=== PATIENT | female | born 1985 | race African-American/Black ===

== ENCOUNTER 2025-05-30 08:57 | Outpatient (CLI) | payer MEDICAID, SELFPAY | END 2025-05-30 08:58 | disposition home or self-care (01) | PROVIDERS: PCP Physician Assistant; Visit Provider Family Medicine | DX: R10.9 Unspecified abdominal pain (principal); R19.7 Diarrhea, unspecified | CPT/HCPCS: A0425; A0427 ==

== ENCOUNTER 2025-05-30 09:37 | Emergency (ER) | payer MEDICAID, SELFPAY ==
--- OUTSIDE RECORDS SUMMARY | 2010-01-14 07:15 | XMS_ITS | Continuity of Care Document ---
Author Organization [facility] Address [address] [address] [place] [address] Phone Care Team Providers Care Roving Inspector Name Role Phone Unavailable Unavailable Unavailable Allergies, Adverse Reactions, Alerts Substance Reaction Status Criticality No Known allergies Medications Medication Instructions Dosage Effective Dates (start - stop) Status Comments Prevpac 500 mg-500 mg-30 mg Oral Pack Take as directed fro 14 days - Active lorazepam 0.5 mg Tab One tablet twice daily - Active Percocet 5 mg-325 mg Tab as needed - Active Abilify 5 mg Tab One tablet twice daily - Active Zoloft 50 mg Tab Take one tablet by mouth daily - Active Procedures Procedure Date Ugi Endo; W/bx 1/mx Level Iv-surg Path Gross/micro 10 Advance Directives Directive Yes / No Effective Date File Name No Information Encounters Encounter Description Practice Location Reason(s) For Visit Diagnoses Date Provider Providers Copied on Encounter [facility], [address] [address], [place], [place], [id number], [place] tel:[phone] [facility] No Information [address] [facility] [place], [address] [address], [place], [place], [id number], [place] tel:[phone] [facility] Hiatal HerniaGastritis W/o BleedDuodenitis Gastritis W/o BleedHiatal HerniaH. Pylori Infection 0 No Information Referring Provider: Trini Calvillo MD W, Vinicio E Anjana Orellana, [place], [address]. tel:[phone] Family History Family Member Type Diagnosis Age At Onset No Information Payers Payer name Insurance type Covered republican ID Authoriza tiana(s) No Information Social History Type Description Quantity Date Captured Comments Sex Female Smoking Status No Information Chief Complaint And Reason For Visit No Information Reason For Referral Reason For Referral No Information History Of Present Illness Encounter Date Complaint History Of Prese nt Illness No Information Functional Status Date Functional Assessmen t No Information Instructions Date Instruction Additional Infor mation No Information Assessments Type Assessment Date No Information Patient Care Teams Name Effective Dates (start - stop) Status Members No Information
[2025-05-30] VITALS (10 sets, daily range): BP systolic 97–118; BP diastolic 46–85; PULSE 49–62; RESP 16–18; TEMP 36.4; O2SAT 96–98; BMI 26.6
--- NOTE | 2025-05-30 10:14 | ED_ITS ---
HPI - Abdominal Pain General Time Seen by Provider: 10:14 Date Seen: 05/30/25 Chief Complaint: Abdominal Pain Stated Complaint: Stomach Pain Time Seen by Provider: 05/30/25 10:13 Source: patient, EMS and RN notes reviewed Mode of arrival: EMS Limitations: no limitations History of Present Illness HPI narrative: This 39-year-old female is coming into the ER via ambulance with complaint of abdominal pain and syncopal episode at home. She did go out last night, had a few drinks but nothing that she would thought would make her sick. She states she just really did not sleep well. She finally fell asleep and then awoke maybe an hour later and was having lower abdominal pain. She got up to go to the bathroom, called to her mom as she was not feeling good. She reportedly had a syncopal episode in the bathroom. She did have an episode of diarrhea. She does not actually remember passing out. When EMS got to her she was responsive but complaining of abdominal pain. She reports she did get Zofran and fentanyl in route but still is having lower abdominal discomfort, does not feel the fentanyl helped. She is complaining of left lower abdominal pain that does generalize into the abdomen. She is still having some nausea. She does clean at [facility]. She does not have any known ill contacts or any recent travel. She has had 5 pregnancies in vaginal deliveries, no other abdominal surgery. She states she does have asthma. She has had a tubal ligation about 7 years ago and states she has had problems with her stomach ever sense. She states she recently was into the clinic to see her doctor about abdominal symptoms. She states she sees Dr. Santos at [facility]. She does have underlying asthma. She does think she carries a diagnosis ulcers but does not think she has had a scope recently. Related Data Home Medications ?Medication ?Instructions ?Recorded ?Confirmed albuterol 90 mcg/actuation aerosol mcg inhalation 05/12 08/06 inhaler Previous Rx's ?Medication ?Instructions ?Recorded ketorolac 10 mg tablet 10 mg PO QID PRN pain #20 ta bs 05/30/25 ondansetron 4 mg disintegrating 4 mg PO Q6H PRN nausea and 05/30/25 tablet vomiting #20 tabs Allergies Allergy/AdvReac Type Severity Reaction Status Date / Time acetaminophen (From Percocet) Allergy Intermediate Rash Verified 05/30/25 11:23 cephalexin Allergy Intermediate Rash Verified 05/30/25 11:23 ibuprofen Allergy Intermediate Gastrointestinal Verified 05/30/25 11:23 Upset oxycodone (From Percocet) Allergy Intermediate Rash Verified 05/30/25 11:23 Review of Systems Status of ROS Reports: 6 or more systems reviewed and unremarkable except as noted in History and below Exam Const: Vital Signs, click to edit/add: Vital Signs - 24 hr 05/30/25 09:45 05/30/25 09:51 05/30/25 10:00 Temperature 97.6 F Pulse Rate 51 L 62 Pulse Rate [Pulse Oximeter] 55 L Respiratory Rate 16 17 Blood Pressure Blood Pressure [Ri ght Upper Arm] 118/85 Pulse Oximetry 96 96 97 Oxygen Delivery Me thod Room Air 05/30/25 10:02 05/30/25 10:03 05/30/25 10:15 Temperature Pulse Rate 53 L 52 L 50 L Pulse Rate [Pulse Oximeter] Respiratory Rate 16 Blood Pressure 101/60 Blood Pressure [Ri ght Upper Arm] Pulse Oximetry 97 97 97 Oxygen Delivery Me thod 05/30/25 10:22 05/30/25 10:30 05/30/25 10:43 Temperature Pulse Rate 50 L 49 L Pulse Rate [Pulse Oximeter] Respiratory Rate 18 Blood Pressure 114/61 98/46 L Blood Pressure [Ri ght Upper Arm] Pulse Oximetry 98 98 Oxygen Delivery Me thod This 39-year-old patient is alert, interactive, no apparent distress. Sclera clear, face atraumatic, speech normal. Lungs clear, good air entry, no wheezing or crackles, no tachypnea, no accessory muscle use. CV is slow but regular, no murmur, normal S1-S2, no S3-S4. Abdomen is soft, nondistended, bowel sounds are present and sound normal. She is complaining of right upper quadrant tenderness as well as generalized tenderness throughout the lower abdomen. There is no rebound or guarding, no organomegaly, no masses noted. Documenting provider has reviewed patient's vital signs: yes Course Course ED Course: Patient is having both upper and lower abdominal pain on examination. This cert ainly could be a gastroenteritis, atypical presentation of biliary disease. We will proceed with CT imaging, will attempt to look at records. Will give her some IV Toradol for further pain management, initiate some IV fluids and get appropriate blood work. Reevaluation(s) Time of Reevaluation #1: 12:33 Reevaluation #1: Have reviewed CT findings with patient, she has ascending and transverse colitis. Lactate was normal and thus not likely ischemic. We discussed the differential that this certainly can be viral or bacterial. Discussed observation in the hospital versus trial of outpatient management. She would prefer to go home. She does understand that this could worsen, may need hospita lization. At this time, I think she is clinically stable enough to try outpatient management. Vital Signs Vital signs: Initial Vital Signs Temperature 97.6 F 05/30/25 09:45 Temperature Source Temporal Artery Scan 05/30/25 09:45 Pulse Rate 55 L 05/30/25 09:45 Respiratory Rate 16 05/30/25 09:45 Blood Pressure 118/85 05/30/25 09:45 Blood Pressure Mean 96 05/30/25 09:45 Pulse Oximetry 96 05/30/25 09:45 Oxygen Delivery Method Room Air 05/30/25 09:45 Vital Signs Temperature 97.6 F 05/30/25 09:45 Pulse Rate 55 L 05/30/25 09:45 Respiratory Rate 16 05/30/25 09:45 Blood Pressure 118/85 05/30/25 09:45 Pulse Oximetry 96 05/30/25 09:45 Oxygen Delivery Method Room Air 05/30/25 09:45 Temperature 97.6 F 05/30/25 09:45 Pulse Rate 49 L 05/30/25 10:30 Respiratory Rate 18 05/30/25 10:30 Blood Pressure 98/46 L 05/30/25 10:43 Pulse Oximetry 98 05/30/25 10:30 Oxygen Delivery Method Room Air 05/30/25 09:45 Medications Administered Medications: Discontinued Medications Generic Name Dose Route Start Last Admin Trade Name Freq PRN Reason Stop Dose Admin Sodium Chloride 1,000 mls @ 500 mls/hr 05/30/25 10:27 05/30/25 11:26 0.9 % Sodium Chloride 1000 Ml IV 05/30/25 12:26 500 mls/hr .Q2H MARTINEZ Administration Ketorolac Tromethamine 15 mg 05/30/25 10:26 05/30/25 10:33 Ketorolac 15 Mg/Ml Inj IVP 05/30/25 10:27 15 mg ONCE ONE Administration MDM - Abdominal Pain Medical Records Attestation: I reviewed the patient's medical records. Medical records narrative: Patient did follow-up with Dr. Santos on May 27. There is reported history of early satiety, weight loss, iron deficiency for which omeprazole was started. They have done a right upper quadrant ultrasound which was negative for ch olecystitis. Thought was that this could represent peptic ulcer disease/gastritis. They are supplementing with oral iron Sunday. 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 She has a history of asthma and tobacco use with nighttime cough. She has had problems and side effects from inhaled corticosteroids. She is noted to have emphysematous changes in this note, there starting Spiriva and p.r.n. albuterol. Labs from May 12 showed normal comprehensive metabolic panel. Her white blood count was normal at 8100, hemoglobin at 13.6 which was normal, platelet count [id number]. She did have a ferritin that was low at 6. TSH was normal, hemoglobin A1c was normal. Ultrasound of a neck nodule showed decreased size of indeterminate hypoechoic structure within the right carotid bifurcation soft tissues done on May 25. Ultrasound of her right upper quadrant done on May 25 shows normal right upper quadrant ultrasound. Lab Data Attestation: I reviewed the patient's lab results. Labs: Lab Results 05/30/25 Range/Units 10:35 WBC 11.31 H (4.50-11.00) K/uL RBC 4.33 (4.00-5.20) m/uL Hgb 13.0 (12.0-16.0) gm/dL Hct 40.6 (33.0-51.0) % MCV 94 (80-100) fL MCH 30 (26-34) pg MCHC 32 (32-36) gm/dL RDW Coeff of Juhi 12.2 (11.5-15.5) % Plt Count 327 (140-440) K/uL Neut % (Auto) 75.7 H (42.0-72.0) % Lymph % (Auto) 16.3 L (20-44) % [place] % (Auto) 5.9 (0.0-11.0) % Eos % (Auto) 1.5 (0.0-7.0) % Baso % (Auto) 0.4 (0.0-3.0) % Neut # (Auto) 8.60 H (1.7-7.0) K/uL Lymph # (Auto) 1.80 (0.90-2.90) K/uL [place] # (Auto) 0.70 (0.00-0.90) K/UL Eos # (Auto) 0.20 (0.00-0.50) K/uL Baso # (Auto) 0.00 (0.00-0.30) K/uL Abs Immat Gran (auto) 0.00 (0.00-0.30) K/uL Imm/Tot Granulo (auto) 0.2 % VBG pH 7.344 (7.32-7.43) VBG pCO2 48 (40-50) mmHG VBG pO2 32.5 (25-47) mmHG VBG HCO3 26 (21-28) mmol/L Sodium 139 (135-149) mmol/L Potassium 3.7 (3.6-5.1) mmol/L Chloride 110 (96-114) mmol/L Carbon Dioxide 25 (20-32) mmol/L Anion Gap 4 L (7-15) mEq/L BUN 9 (5-24) mg/dL Creatinine 0.8 (0.5-1.5) mg/dL Estimated Creat Clear 89.26 Estimated GFR 97 ml/min Glucose 98 (60-115) mg/dL Lactate 0.6 (0.5-1.9) mmol/L Calcium 8.6 (8.4-10.6) mg/dL Total Bilirubin 0.2 (0.1-1.5) mg/dL Direct Bilirubin 0.0 (0.0-0.5) mg/dL AST 19 (12-35) U/L ALT 12 (4-35) U/L Alkaline Phosphatase 51 (40-150) U/L Troponin I < 0.01 (0.01-0.04) ng/mL C-Reactive Protein < 0.5 L (0.5-1.0) mg/dL NT-Pro-B Natriuret Pep 35 (See Note) pg/mL Total Protein 6.2 (6.0-8.3) g/dL Albumin 3.7 (3.3-5.0) g/dL Lipase 80 (23-300) U/L Ethyl Alcohol < 0.01 (0.01-0.03) % Imaging Data CT scan - abdomen: Attestation: I have reviewed the pertinent imaging results. Radiologist's impression: Patient: LORRIE HARRIS Facility:?[facility] Patient ID:?[id number] Site Patient ID:?[id number]. Site :?[id number] Study:?CT-Abdomen/Pelvis 81CC ISOVUE 370-05/30/2025 11:19:10 AM Ordering Physician:?Louise Torres Final Report: INDICATION: Abdominal pain, right upper and right lower quadrant. Diarrhea. TECHNIQUE: CT abdomen and pelvis acquired with 81 cc of Isovue 370 IV contrast. COMPARISON: None. FINDINGS: Lower chest: Unremarkable. Liver: Unremarkable. Spleen: Unremarkable. Pancreas: Unremarkable. Gallbladder and bile ducts: No calcified stones or biliary ductal dilatation. Kidneys: Contrast material in the collecting systems degrades evaluation for urolithiasis. No hydronephrosis or suspicious lesion. Adrenal glands: Unremarkable. GI tract: No evidence of obstruction or acute appendicitis. Mild circumferential thickening and pericolonic heterogeneity involving the ascending and transverse colon. No pneumatosis or free intraperitoneal gas. Trace pelvic free fluid. No suspicious fluid collection. Lymph nodes: No pathologic lymphadenopathy. Vascular structures: Unremarkable. Pelvic Organs: Unremarkable. Bones: No acute or suspicious osseous abnormality. IMPRESSION: Colitis of the ascending and transverse colon. Trace pelvic free fluid may be reactive or physiologic. No evidence of perforation or abscess. Dictated by Apollo Bradshaw MD @ 05/30/2025 12:13:34 PM Please note that all CT scans at this facility use dose modulation, iterative reconstruction, and/or weight-based dosing when appropriate to reduce radiation dose to as low as reasonably achievable. Dictated by: Apollo Bradshaw MD @ 05/30/2025 12:14:32 (Electronic Signature) ECG Data Attestation: I personally reviewed and interpreted this ECG as follows: (Sinus bradycardia, 55 beats per minute. No acute ischemic change or infarct noted. QT corrected 438 milliseconds.) ECG interpretation date: 05/30/25 ECG interpretation time: 11:21 Prior ECG tracings: not available for review Discharge Plan Discharge Clinical Impression: Colitis Patient Disposition: Home, Self-Care Condition: Stable Instructions: Colitis (ED), Nutrition Tips for Relief of Diarrhea (ED) Additional Instructions: Need to drink ample fluids, take frequent small sips of clear liquids. Follow handout to help with nutrition through diarrhea. At this point, would try to really push clear liquids and avoid excessive food. Can use Tylenol 1000 mg 3 times daily baseline for pain. Have written for Zofran for nausea and Toradol for extra pain management. If at any point you are worsening with increasing abdominal pain, development of fever or bloody diarrhea, feel you are unable to keep up with fluids and becoming dehydrated, do need to return for further evaluation. Do recommend scheduling a clinic appointment with your primary care provider within the next week for recheck otherwise. Activity Level: Activity as Tolerated Prescriptions: New ondansetron 4 mg tablet,disintegrating 4 mg PO Q6H PRN (Reason: nausea and vomiting) Qty: 20 0RF ketorolac 10 mg tablet 10 mg PO QID PRN (Reason: pain) Qty: 20 0RF Rx Instructions: maximum total duration of 5 days from all oral, intranasal, or parenteral formulations No Action albuterol 90 mcg/actuation aerosol inhalation Follow Up/Referrals: Corrina Santos PA-C [Primary Care Provider, Dermatology] Stand Alone Forms: [employer] Info Instructions Procedures ABG Interpretation ABG Results: 05/30/25 10:35 VBG pH 7.344 VBG pCO2 48 VBG pO2 32.5 VBG HCO3 26
--- NOTE | 2025-05-30 10:26 | CRLHL7_ITS ---
For Patients: As a result of the Century Cures Act, medical imaging exams and procedure reports are released immediately into your electronic medical record. You may view this report before your referring provider. If you have questions, please contact your health care provider. INDICATION: Abdominal pain, right upper and right lower quadrant. Diarrhea. TECHNIQUE: CT abdomen and pelvis acquired with 81 cc of Isovue 370 IV contrast. COMPARISON: None. FINDINGS: Lower chest: Unremarkable. Liver: Unremarkable. Spleen: Unremarkable. Pancreas: Unremarkable. Gallbladder and bile ducts: No calcified stones or biliary ductal dilatation. Kidneys: Contrast material in the collecting systems degrades evaluation for urolithiasis. No hydronephrosis or suspicious lesion. Adrenal glands: Unremarkable. GI tract: No evidence of obstruction or acute appendicitis. Mild circumferential thickening and pericolonic heterogeneity involving the ascending and transverse colon. No pneumatosis or free intraperitoneal gas. Trace pelvic free fluid. No suspicious fluid collection. Lymph nodes: No pathologic lymphadenopathy. Vascular structures: Unremarkable. Pelvic Organs: Unremarkable. Bones: No acute or suspicious osseous abnormality. IMPRESSION: Colitis of the ascending and transverse colon. Trace pelvic free fluid may be reactive or physiologic. No evidence of perforation or abscess. Dictated by Apollo Bradshaw MD @ 05/30/2025 12:13:34 PM Please note that all CT scans at this facility use dose modulation, iterative reconstruction, and/or weight-based dosing when appropriate to reduce radiation dose to as low as reasonably achievable. Dictated by: Apollo Bradshaw MD @ 05/30/2025 12:14:32 (Electronically Signed)
[2025-05-30 10:41] LABS: HCO3 VBG 26 mmol/L (21-28); Lactate* 0.6 mmol/L (0.5-1.9); PCO2 VBG 48 mmHG (40-50); PO2 VBG 32.5 mmHG (25-47); pH VBG 7.344 (7.32-7.43)
[2025-05-30 10:44] LABS: Hematocrit 40.6 % (33.0-51.0); Hemoglobin* 13.0 gm/dL (12.0-16.0); Immature Granulocytes Pct Auto 0.2 %; Mean Corpuscular HGB Conc 32 gm/dL (32-36); Mean Corpuscular Hemoglobin 30 pg (26-34); Mean Corpuscular Volume 94 fL (80-100); RDW Coefficient of Variation % 12.2 % (11.5-15.5); Red Blood Count 4.33 m/uL (4.00-5.20); White Blood Count* 11.31 K/uL (4.50-11.00)
--- OUTSIDE RECORDS SUMMARY | 2025-05-30 10:44 | XMS_ITS | Clinical Summary ---
Author Organization [facility] Address [address] [place] [address] Care Team Providers Care Disk Sander Name Role Phone Rupal Santos MD Primary Care Prov ider Allergies Active Allergy Reactions Criticality Noted Date Comments Acetaminophen Hives 08/09/2010 Ewaluxt-Uwkjleadbqezm-L affeine Nausea And Vomiting 08/01/2019 Cephalexin Hives 12/12/2011 Codeine Hives 02/25/2015 Ibuprofen GI Upset 10/11/2011 04/18/17 - Previously reported hives. Corrected that to say only that it makes me sick to my stomach. Previously noted: The patient reports that she has tolerated naprosyn (alleve) without problems. Morphine Nausea Only 06/03/2010 Oxycodone-Acetaminophen Hives 08/09/2010 Medications omeprazole 20 mg tabletIndications :Weight loss,Early satiety Take 1 Tablet (20 mg) by mouth once daily before a meal. 90 Tablet 3 5 Active albuterol HFA (PRO-AIR; VENTOLIN; PROVENTIL) 90 mcg/actuation inhalerIndication s:Moderate persistent asthma without complication (HC) Inhale 1-2 Puffs by mouth every 4 hours if needed for Shortness Of Breath or Wheezing. 1 Each 5 Active tiotropium bromide (Spiriva Respimat) 1.25 mcg/actuation mist for inhalationIndicat ions:Moderate persistent asthma without complication (HC) Inhale 2 Puffs by mouth once daily. 1 Each 5 Active Active Problems Problem Noted Date Diagnosed Date Iron deficiency 05/27/2025 Moderate persistent asthma without complication 05/27/2025 Schizophrenia 05/12/2025 Overview (05/12/2025): AI Summary: As of 02/19/24: The patient has a history of schizoaffective schizophrenia, first noted on 10/11/2011. Past medical history also includes bipolar disorder, schizophrenia, and depression. The patient presented to the ED on multiple occasions with complaints including abdominal pain, flank pain, and body aches; schizoaffective schizophrenia was mentioned as a reason for encounter on several occasions. 02/19/24: Glu 73 mg/dL Recent notes: 02/19/24: ED Provider Note by CAMELIA Harrington ... [+] Schizo affective schizophrenia (HC) 10/01/23: Progress Notes by Mague Moss NP ... [+] ? Schizo affective schizophrenia (HC) F25.9 12/13/11: Discharge Summary by Leon Desai ... [+] Schizo affective schizophrenia (10/11/2011) 12/13/11: H&P - ADMISSION HISTORY AND PHYSICAL by Leon Desai ... [+] ? Schizo affective schizophrenia [295.70H] 10/11/2011 12/12/11: ED Provider Note by Ovidio Guan MD ... [+] Lanny Kee is a 26 y.o. female with a history of asthma, schizophrenia who presents to the Emergency Department for evaluation of body aches. ... [-] Schizo affective schizophrenia ... [+] Schizo affective schizophrenia (295.70) Manic episode 05/12/2025 Overview (05/12/2025): AI Summary: As of 02/19/24: The patient has a history of bipolar I disorder, single manic episode. This was documented in the problem list on 10/01/2023 and 02/19/2024. No information on onset, cause, complications, management, or progression is available. 04/27/16: TSH 0.878 uIU/ml Recent notes: 02/19/24: ED Provider Note by CAMELIA Harrington ... [+] Bipolar I disorder, single manic episode (HC) 10/01/23: Progress Notes by Mague Moss NP ... [+] ? 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 05/12/2025 Alopecia areata 12/28/2021 Overview (04/14/2022): Created by Conversion Overview: Created by Conversion Created by Conversion Herpes simplex virus (HSV) infection 12/28/2021 Overview (04/14/2022): Overview: Created by Conversion Replacement Utility updated for latest IMO load Created by Conversion Replacement Utility updated for latest IMO load Created by Conversion Replacement Utility updated for latest IMO load Insomnia 12/28/2021 Overview (04/14/2022): Overview: Created by Conversion Created by Conversion Created by Conversion Raynaud's phenomenon 12/28/2021 Overview (04/14/2022): Overview: Created by Conversion Created by Conversion Vitamin D deficiency 12/28/2021 Overview (04/14/2022): Overview: Created by Conversion Replacement Utility updated for latest IMO load Created by Conversion Replacement Utility updated for latest IMO load Created by Conversion Replacement Utility updated for latest IMO load Chronic post-traumatic stress disorder 7 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 Has cut down to very few cigarettes.(06/26/2016) Encouraged to quit in . Has cut down to very few cigarettes.(06/26/2016) Overview: Encouraged to quit in . Has cut down to very few cigarettes.(06/26/2016) Encouraged to quit in . Has cut down to very few cigarettes.(06/26/2016) Migraine 04/01/2015 Major depression, recurrent 10/11/2011 Schizo affective schizophrenia 10/11/2011 Bipolar I disorder, single manic episode 011 Overview (04/14/2022): Overview: Created by Conversion Replacement Utility updated for latest IMO load Created by Conversion Replacement Utility updated for latest IMO load Created by Conversion Replacement Utility updated for latest IMO load Resolved Problems Problem Noted Date Diagnosed Date Resolved Date Pyelonephritis, acute 12/13/20112011 Nausea with vomiting 12/13/2011 015 Viral syndrome 12/13/2011 04/01/2015 Unspecified asthma, with exacerbation 10/11/2011 05/27/2025 Encounters Date Type Department Care Team Description 05/27/2025 10:40 AM CDT Office Visit [facility] [address] [place] [address] Rupal Santos MD Follow Up (Lab/test results); Refill Request (Albuterol Inhaler last prescribed 05/28/2017) 05/27/2025 Travel 05/25/2025 3:00 PM CDT Ancillary Procedure [facility] [address] [place] [address] Arrived 05/25/2025 1:45 PM CDT Ancillary Procedure [facility] [address] [place] [address] Arrived 05/25/2025 1:00 PM CDT Ancillary Procedure [facility] [address] [place] [address] Arrived 05/25/2025 Travel 05/12/2025 11:30 AM CDT Office Visit [facility] [address] [place] [address] Rupal Santos MD Physical (39 year old ); Screening (lung screening ); Gi Problem (Abdominal discomfort for 4 years/no appetite/Will go 3 weeks without eating. /vomits after eating ); Nicotine Dependence (would like to quit smoking ) 05/12/2025 Travel 05/04/2025 Telephone [facility] [address], [place] [id number] [facility] Error-please disregard from Last 3 Months Immunizations Immunization Administration Dates Next Due Hepatitis B (Adult) 04/27/2016 Hepatitis B (Peds) 12/22/2005 Hepatitis B, Unspecified 12/22/2005 Human Papilloma Virus Vaccine 09/02/2009, 009,09/29/2008 Influenza A (H1N1), Live Intranasal 07/29/2010 Influenza Nasal, Unspecified Formulation 07/29/2010 Influenza Virus, Unspecified 08/08/2016, 10/21/2015,07/28/2009,2007 Influenza, IIV3 (Age 6-35 mos) 07/28/2009,2007 Influenza, IIV3 (Age >=3 years) 12/13/2011 Influenza, IIV4 08/08/2016,10/21/2015 Influenza,LAIV3 Live Intrana deandre (Flumist) 07/29/2010 Pneumococcal Poly,23-Valent (Pneumovax) 12/13/2011 Tdap 01/13/2020, 8,09/25/2016,2008 Tetanus Toxoid 05/29/2006 Family History Medical History Relation Name Comments Good Health Brother 1 Good Health Brother 2 Good Health Brother 3 Unknown Father Cancer Maternal Grandmother Diabetes Maternal Grandmother Psychiatric illness Mother depressi on Thyroid Disease Mother Unknown Sister foster home Relation Name Status Comments Brother 1 Brother 2 Brother 3 Father Maternal Grandmother Mother Sister Social History Tobacco Use Types Packs/Day Years Used Date Smoking Tobacco: Every Day Cigarettes 0.5 6 Smokeless Tobacco: Never Tobacco Cessation:Ready to Q uit: Not Asked; Counseling Given: Not Answered Alcohol Use Standard Drinks/Week Comments No 0 (1 standard drink = 0.6 oz pur e alcohol) none PHQ-2 Answer Date Recorded PHQ-2 TOTAL SCORE 3 05/12/2025 Social Connections Answer Date Recorded Do you often feel lonely or isolated from those around you? 0 05/12/2025 Financial Resource Strain Answer Date R ecorded Difficulty of Paying Living Expenses 3 05/12/2025 Difficulty of Paying Living Expenses Not on file 05/12/2025 Food Insecurity Answer Date Recorded Do you worry your food will run out before you are able to buy more? 1 05/12/2025 Transportation Needs Answer Date Record ed Does lack of transportation keep you from medica l appointments? 1 05/12/2025 Does lack of transportation keep you from work, meetings or getting things that you need? 1 05/12/2025 Housing Stability Answer Date Recorded What is your housing situation today? 1 05/12/2025 Interpersonal Safety Answer Date Record ed Are you being hit, kicked, p ushed or yelled at (see row info)? No 02/19/2024 Interpersonal Safety Abuse 12 - 18 Not on file 02/19/2024 Interpersonal Safety Ambulatory Vulnerability No t on file 02/19/2024 Utilities Answer Date Recorded Do you have trouble paying f or utilities (for example, heat, electricity, water, phone)? 1 05/12/2025 Comments No Sex and Gender Information Value Date Recorded Sex Assigned at Not on file Legal Sex Female 6:23 AM [employer] Gender Identity Not on file Sexual Orientation Not on file Occupation Industry Job Start Date Job End Date Unemployed Not on file Not on file Not on file Obstetrics History Para Term AB IAB SAB Ectopic Multiple Livin g Live Births 9 4 4 4 4 4 4 Date Outcome GA Total Labor Labor/2nd/3rd Weight Sex Type Anes PTL Jessy A1 A5 Name Clin 003 Term 38w 0d 2.92 kg (6 lb 7 oz) M Vag Epidur al Livin g Complications:Gestational di abetes (HC) Delivery Location:[facility] 005 Term 38w 0d 3.23 kg (7 lb 2 oz) F Vag Epidur al Livin g Complications:Gestational di abetes (HC) Delivery Location:[facility] 007 Term 41w 0d 3.43 kg (7 lb 9 oz) M Vag None Livin g Complications:Gestational di abetes (HC) Delivery Location:[facility] 10/2008 SAB 04/2009 SAB 07/2009 SAB 017 Term 39w 0d 4.03 kg (8 lb 14 oz) M Vag Epidur al Livin g Delivery Location:[facility] Comments:cervical lace ration Last Filed Vital Signs Vital Sign Reading Time Taken Comments Blood Pressure 107/74 05/27/2025 10:49 AM CDT Pulse 63 05/27/2025 10:49 AM CDT Temperature 36.8 C (98.2 F) 02/19/2024 10:05 AM CDT Respiratory Rate 20 02/19/2024 10:05 AM CDT Oxygen Saturation 99% 05/27/2025 10:49 AM CDT Inhaled Oxygen Concentration - - Weight 82.6 kg (182 lb) 05/12/2025 11:34 AM CDT Height 166.5 cm (5' 5.55) 05/12/2025 11:34 AM C DT Body Mass Index 29.78 05/12/2025 11:34 AM CDT Plan of Treatment Upcoming Encounters Date Type Department Care Team (Late st Contact Info) Description 06/10/2025 10:40 AM CDT Office Visit [facility] [address] [place] [address] Rupal Santos MD [address] [place] [address] Health Maintenance Due Date Last Done Comments HIV for age 15-65 2001 Hepatitis C screening for ag e 18-79 2004 Pap test for age 21-65 2007 Pneumococcal series for age 6-49 (2 of 2 - PCV) 12/13/2012 12/13/2011 Hepatitis B series for 19+ ( 3 of 3 - 19+ 3-dose series) 06/22/2016 04/27/2016, 12/22/2005, 12/22/2005 COVID-19 vaccine series ( - 2023- season) 2024 Influenza Vaccine (#1) 2025 6, 08/08/2016, 10/21/2015, Additional history exists BMI (ht and wt on same day) for age 18+ 05/12/2026 05/12/2025, 10/01/2023, 05/28/2017 Depression screening for age 12+ 05/12/2026 05/12/20 Tetanus booster 01/12/2030 01/13/2020, 0212/2017, 09/25/2016, Additional history exists Procedures Procedure Name Priority Date/Time Associated Diagnosis Comments US ABDOMEN LIMITED RUQ Routine 05/25/2025 1:28 PM CDT Weight loss Early satiety CT CHEST WO Routine 05/25/2025 1:27 PM CDT Pulmonary nodules/lesions, multiple US NECK OR HEAD SOFT TISSUE Routine 05/25/2025 1:24 PM CDT Abnormal ultrasound of carotid artery (possible paraganglioma/carot id body tumor) CBC WITH AUTO DIFFERENTIAL Routine 05/12/2025 12:53 PM CDT Screening for metabolic disorder COMP METABOLIC PANEL Routine 05/12/2025 12:53 PM CDT Screening for metabolic disorder LIPID PANEL Routine 05/12/2025 12:53 PM CDT Screening cholesterol level HEMOGLOBIN A1C MONITORING (POCT) Routine 05/12/2025 12:53 PM CDT Screening for diabetes mellitus TSH WITH REFLEX Routine 05/12/2025 12:53 PM CDT Weight loss FERRITIN Routine 05/12/2025 12:53 PM CDT Weight loss from Last 3 Months Results * US ABDOMEN LIMITED RUQ (05/25/2025 1:28 PM CDT) Anatomical Region Laterality Modality Abdomen, LIVER Ultrasound 05/25/2025 2:54 PM CDT Impressions 05/25/2025 2:54 PM CDT Normal right upper quadrant ultrasound. Dictated by Kaden Moise MD @ 05/25/2025 2:54:52 PM (Electronically Signed) Narrative 05/25/2025 2:54 PM CDT For Patients: As a result of the Cures Act, medical imaging exams and procedure reports are released immediately into your electronic medical record. You may view this report before your referring provider. If you have questions, please contact your health care provider. INDICATION: Early satiety Weight loss COMPARISON: CT 02/25/2015 TECHNIQUE: Real time cruz scale imaging and color Doppler analysis was performed of the right upper quadrant. FINDINGS: The patient`s liver is of normal size and has uniform echogenicity. There is a normal appearance of the hepatic IVC and proximal abdominal aorta. There is no evidence of ascites. The gallbladder is of normal size and there is no evidence of intraluminal stones or sludge. The gallbladder wall measures 1 mm in thickness. The common bile duct is of normal size and measures 5 mm in diameter at the level of the raina hepatis. The visualized pancreas appears normal. There is no evidence of a stone or hydronephrosis within the right kidney. The right kidney measures 10.8 cm in length. Procedure Note Kaden Moise MD - 05/25/2025 For Patients: As a result of the Cures Act, medical imagingexams and procedure reports are released immediately into your electronicmedical record. You may view this report before your referring provider.If you have questions, please contact your health care provider. INDICATION: Early satiety Weight loss COMPARISON: CT 02/25/2015 TECHNIQUE: Real time cruz scale imaging and color Doppler analysis was performed ofthe right upper quadrant. FINDINGS: The patient`s liver is of normal size and has uniform echogenicity. Thereis a normal appearance of the hepatic IVC and proximal abdominal aorta.There is no evidence of ascites. The gallbladder is of normal size andthere is no evidence of intraluminal stones or sludge. The gallbladderwall measures 1 mm in thickness. The common bile duct is of normal sizeand measures 5 mm in diameter at the level of the raina hepatis. Thevisualized pancreas appears normal. There is no evidence of a stone orhydronephrosis within the right kidney. The right kidney measures 10.8 cmin length. IMPRESSION: Normal right upper quadrant ultrasound. Dictated by Kaden Moise MD @ 05/25/2025 2:54:52 PM (Electronically Signed) us Rupal Santos MD Fi nal Result * CT CHEST WO (05/25/2025 1:27 PM CDT) Anatomical Region Laterality Modality CHEST, THORAX, HEART Computed To mography 05/25/2025 2:51 PM CDT Narrative 05/25/2025 2:51 PM CDT For Patients: As a result of the Century Cures Act, medical imaging exams and procedure reports are released immediately into your electronic medical record. You may view this report before your referring provider. If you have questions, please contact your health care provider. Indication: Pulmonary nodules Technique: Noncontrast CT chest Please note that all CT scans at this facility use dose modulation, iterative reconstruction, and/or weight-based dosing when appropriate to reduce radiation dose to as low as reasonably achievable. Comparison: 02/19/2024 Findings: Stable subpleural nodule in the right upper lobe which measures 5 millimeters. Stable subpleural nodule at the left upper lobe which measures 3 millimeters. Stable subpleural nodule right lateral lung measures 4 millimeters. Tiny linear nodule adjacent to the right-sided fissure measures 4 millimeters, unchanged. Improved aeration when compared to the prior study with decreased motion artifact. Residual atelectasis in both lower lobes, ynzl-rfseylj-wqzh-right. Mild atelectasis in the left upper lobe posteriorly. No pleural effusion. No adenopathy. Incidental calcification in the spleen. Visualized thyroid is unremarkable. No fracture. Mild emphysematous change in the right lung apex. Impression: Stable bilateral pulmonary nodules. No further follow-up indicated. Please note that all CT scans at this facility use dose modulation, iterative reconstruction, and/or weight-based dosing when appropriate to reduce radiation dose to as low as reasonably achievable. Dictated by Kaden Moise MD @ 05/25/2025 2:51:50 PM (Electronically Signed) Procedure Note Kaden Moise MD - 05/25/2025 For Patients: As a result of the Century Cures Act, medical imagingexams and procedure reports are released immediately into your electronicmedical record. You may view this report before your referring provider.If you have questions, please contact your health care provider. Indication: Pulmonary nodules Technique: Noncontrast CT chest Please note that all CT scans at this facility use dose modulation,iterative reconstruction, and/or weight-based dosing when appropriate toreduce radiation dose to as low as reasonably achievable. Comparison: 02/19/2024 Findings: Stable subpleural nodule in the right upper lobe which measures 5millimeters. Stable subpleural nodule at the left upper lobe whichmeasures 3 millimeters. Stable subpleural nodule right lateral lungmeasures 4 millimeters. Tiny linear nodule adjacent to the right-sidedfissure measures 4 millimeters, unchanged. Improved aeration when comparedto the prior study with decreased motion artifact. Residual atelectasis inboth lower lobes, hnqm-ghufnrv-qqin-right. Mild atelectasis in the leftupper lobe posteriorly. No pleural effusion. No adenopathy. Incidentalcalcification in the spleen. Visualized thyroid is unremarkable. Nofracture. Mild emphysematous change in the right lung apex. Impression: Stable bilateral pulmonary nodules. No further follow-up indicated. Please note that all CT scans at this facility use dose modulation,iterative reconstruction, and/or weight-based dosing when appropriate toreduce radiation dose to as low as reasonably achievable. Dictated by Kaden Moise MD @ 05/25/2025 2:51:50 PM (Electronically Signed) Rupal Santos MD CT Fi nal Result * US NECK OR HEAD SOFT TISSUE (05/25/2025 1:24 PM CDT) Anatomical Region Laterality Modality NECK Ultrasound 05/25/2025 2:46 PM CDT Narrative 05/25/2025 2:46 PM CDT For Patients: As a result of the Cures Act, medical imaging exams and procedure reports are released immediately into your electronic medical record. You may view this report before your referring provider. If you have questions, please contact your health care provider. Indication: Follow up nodule Technique: Grayscale and color Doppler ultrasound of the right carotid soft tissues performed. Comparison: Ultrasound and CT 11/26/2023 Findings: Small hypoechoic nodule is present within the right carotid bifurcation soft tissues which measures 4 x 4 x 3 millimeters, previously measuring 8 x 5 x 4 millimeters. No abnormal vascularity. Impression: Decreased size of indeterminate hypoechoic structure within the right carotid bifurcation soft tissues. Dictated by Kaden Moise MD @ 05/25/2025 2:46:40 PM (Electronically Signed) Procedure Note Kaden Moise MD - 05/25/2025 For Patients: As a result of the Cures Act, medical imagingexams and procedure reports are released immediately into your electronicmedical record. You may view this report before your referring provider.If you have questions, please contact your health care provider. Indication: Follow up nodule Technique: Grayscale and color Doppler ultrasound of the right carotid soft tissuesperformed. Comparison: Ultrasound and CT 11/26/2023 Findings: Small hypoechoic nodule is present within the right carotid bifurcationsoft tissues which measures 4 x 4 x 3 millimeters, previously measuring 8x 5 x 4 millimeters. No abnormal vascularity. Impression: Decreased size of indeterminate hypoechoic structure within the rightcarotid bifurcation soft tissues. Dictated by Kaden Moise MD @ 05/25/2025 2:46:40 PM (Electronically Signed) us Rupal Santos MD US Fi nal Result * TSH WITH REFLEX (05/12/2025 12:53 PM CDT) TSH W/REFLEX TO FT4 2.70 mIU/L [facility] Comment: Reference Range > or = 20 Years 0.40-4.50 Ranges First trimester 0.26-2.66 Second trimester 0.55-2.73 Third trimester 0.43-2.91 Blood BLOOD SPECIMEN / Unknown 05/12/2025 12:53 PM CDT 05/12/2025 12:53 PM CDT Rupal Santos MD CHEMISTRY Fi nal Result [facility] [address] [place] [address], [facility] [address] [place] [address] * (ABNORMAL) CBC AND DIFFERENTIAL (05/12/2025 12:53 PM CDT) WHITE BLOOD CELL COUNT 8.1 3.8 - 10.8 Thousand/u L [facility] RED BLOOD CELL COUNT 4.46 3.80 - 5.10 Million/uL [facility] HEMOGLOBIN 13.6 11.7 - 15.5 g/dL [facility] HEMATOCRIT 44.1 35.0 - 45.0 % [facility] MCV 98.9 80.0 - 100.0 fL [facility] MCH 30.5 27.0 - 33.0 pg [facility] MCHC 30.8(L) 32.0 - 36.0 g/dL [facility] Comment: For adults, a slight decrease in the calculated MCHC value (in the range of 30 to 32 g/dL) is most likely not clinically significant; however, it should be interpreted with caution in correlation with other red cell parameters and the patient's clinical condition. RDW 13.4 11.0 - 15.0 % [facility] PLATELET COUNT 351 140 - 400 Thousand/u L [facility] MPV 10.1 7.5 - 12.5 fL [facility] ABSOLUTE NEUTROPHILS 4,439 1,500 - 7,800 cells/uL [facility] ABSOLUTE LYMPHOCYTES 2,778 850 - 3,900 cells/uL [facility] ABSOLUTE MONOCYTES 616 200 - 950 cells/uL [facility] ABSOLUTE EOSINOPHILS 194 15 - 500 cells/uL [facility] ABSOLUTE BASOPHILS 73 0 - 200 cells/uL [facility] NEUTROPHILS 54.8 % [facility] LYMPHOCYTES 34.3 % [facility] MONOCYTES 7.6 % [facility] EOSINOPHILS 2.4 % [facility] BASOPHILS 0.9 % [facility] Blood BLOOD SPECIMEN / Unknown 05/12/2025 12:53 PM CDT 05/12/2025 12:53 PM CDT Rupal Santos MD HEMATOLOGY Fi nal Result [facility] [address] [place] [address], [place] [phone] [facility] [address] [place] [phone] * HEMOGLOBIN A1C MONITORING (POCT) (05/12/2025 12:53 PM CDT) Pathologist [facility] POC HEMOGLOBIN A1C 5.0 <6.0 % OF TOTAL HGB [facility] Comment: Any point of care results exhibiting inconsistency with the patient's clinical status should be repeated using a different testing method. Blood BLOOD SPECIMEN / Unknown 05/12/2025 12:53 PM CDT 05/12/2025 12:54 PM CDT Rupal Santos MD CHEMISTRY Fi nal Result [facility] [address] [place] [address], [place] [phone] [facility] [address] [place] [address] * (ABNORMAL) FERRITIN (05/12/2025 12:53 PM CDT) [facility] FERRITIN 6(L) 16 - 154 ng/mL [facility] Blood BLOOD SPECIMEN / Unknown 05/12/2025 12:53 PM CDT 05/12/2025 12:53 PM CDT us Rupal Santos MD CHEMISTRY Fi nal Result [facility] [address] [place] [address], [facility] [address] [place] [address] * (ABNORMAL) LIPID PANEL (05/12/2025 12:53 PM CDT) [facility] CHOLESTEROL, TOTAL 152 <200 mg/dL [facility] HDL CHOLESTEROL 43(L) > OR = 50 mg/dL [facility] TRIGLYCERIDES 120 <150 mg/dL [facility] LDL-CHOLESTEROL 87 mg/dL (calc) [facility] Comment: Reference range: <100 Desirable range <100 mg/dL for primary prevention; <70 mg/dL for patients with CHD or diabetic patients with > or = 2 CHD risk factors. LDL-C is now calculated using the Marly calculation, which is a validated novel method providing better accuracy than the Friedewald equation in the estimation of LDL-C. Gurvinder GONZALEZ et al. DAMON. 2013;310(19): 9439-2562 (http://education.NeuroQuest/faq/IKU766) CHOL/HDLC RATIO 3.5 <5.0 (calc) [facility] NON HDL CHOLESTEROL 109 <130 mg/dL (calc) [facility] Comment: For patients with diabetes plus 1 major ASCVD risk factor, treating to a non-HDL-C goal of <100 mg/dL (LDL-C of <70 mg/dL) is considered a therapeutic option. Blood BLOOD SPECIMEN / Unknown 05/12/2025 12:53 PM CDT 05/12/2025 12:53 PM CDT Rupal Santos MD CHEMISTRY Fi nal Result [facility] [address] [place] [address], [facility] [address] [place] [address] * (ABNORMAL) COMP METABOLIC PANEL (05/12/2025 12:53 PM CDT) GLUCOSE 86 65 - 99 mg/dL [facility] Comment: Fasting reference interval UREA NITROGEN (BUN) 6(L) 7 - 25 mg/dL [facility] CREATININE 0.88 0.50 - 0.97 mg/dL [facility] EGFR 86 > OR = 60 mL/min/1.7 3m2 [facility] BUN/CREATININE RATIO 7 6 - 22 (calc) [facility] SODIUM 139 135 - 146 mmol/L [facility] POTASSIUM 4.3 3.5 - 5.3 mmol/L [facility] CHLORIDE 107 98 - 110 mmol/L [facility] CARBON DIOXIDE 26 20 - 32 mmol/L [facility] CALCIUM 9.4 8.6 - 10.2 mg/dL [facility] PROTEIN, TOTAL 6.7 6.1 - 8.1 g/dL [facility] ALBUMIN 4.2 3.6 - 5.1 g/dL [facility] GLOBULIN 2.5 1.9 - 3.7 g/dL (calc) [facility] ALBUMIN/GLOBULIN RATIO 1.7 1.0 - 2.5 (calc) [facility] BILIRUBIN, TOTAL 0.5 0.2 - 1.2 mg/dL [facility] ALKALINE PHOSPHATASE 51 31 - 125 U/L [facility] AST 10 10 - 30 U/L [facility] ALT 7 6 - 29 U/L [facility] Blood BLOOD SPECIMEN / Unknown 05/12/2025 12:53 PM CDT 05/12/2025 12:53 PM CDT Rupal Santos MD CHEMISTRY Fi nal Result [facility] [address] [place] [address], [facility] [address] [place] [address] from Last 3 Months Insurance [facility] Advance Directives * Full Code (Latest Code Status on File) Date Activated Date Inactivated Comments 12/19/2017 6:42 PM 12/20/2017 12:01 AM * Full Code Date Activated Date Inactivated Comments 10/28/2017 9:40 AM 10/28/2017 2:49 PM * Full Code Date Activated Date Inactivated Comments 12/13/2011 2:02 AM 12/13/2011 10:07 PM Care Teams Disk Sander Relationship Specialty Start Date End Date Rupal Santos MD [address] [place] [address] PCP - General Family Practice 05/27/25
[2025-05-30 10:55] LABS: Immature Granulocytes Abs Auto 0.00 K/uL (0.00-0.30); Lymphocytes Absolute Auto 1.80 K/uL (0.90-2.90); Slide Review Reflex No
[2025-05-30 10:58] LABS: Albumin* 3.7 g/dL (3.3-5.0); Chloride* 110 mmol/L (96-114); Potassium* 3.7 mmol/L (3.6-5.1); Sodium* 139 mmol/L (135-149)
[2025-05-30 11:01] LABS: Alanine Aminotransferase* 12 U/L (4-35); Alkaline Phosphatase* 51 U/L (40-150); Anion Gap 4 mEq/L (7-15); Aspartate Amino Transferase* 19 U/L (12-35); Bilirubin Direct* 0.0 mg/dL (0.0-0.5); Bilirubin Total* 0.2 mg/dL (0.1-1.5); Blood Urea Nitrogen* 9 mg/dL (5-24); Carbon Dioxide* 25 mmol/L (20-32); Creatinine* 0.8 mg/dL (0.5-1.5); Est. Creatinine Clearance* 89.26; Estimated Glomerular Filt Rate 97 ml/min; Total Protein* 6.2 g/dL (6.0-8.3)
[2025-05-30 11:02] LABS: Calcium* 8.6 mg/dL (8.4-10.6); Glucose* 98 mg/dL (60-115)
[2025-05-30 11:12] LABS: Ethanol* < 0.01 % (0.01-0.03); NT Pro B Type NatriureticPept* 35 pg/mL (See Note)
== END 2025-05-30 12:50 | disposition home or self-care (01) ==
PROVIDERS: Emergency Provider Family Medicine; PCP Physician Assistant
DX: K52.9 Noninfective gastroenteritis and colitis, unspecified (principal)
CPT/HCPCS: 36415; 74177; 80053; 81001; 82077; 82248; 82803; 83605; 83690; 83880; 84484; 85025; 86140; 93005; 96374; 99284; 99285; J1885; J7030; Q9967